=== PATIENT | female | born 1970 | race Caucasian/White ===

== ENCOUNTER 2017-02-13 09:46 | Day surgery (SDC) | payer OTHER ==
[2017-02-13] MEDS ORDERED: Lactated Ringer's 500 ML IV ONE (09:57)
[2017-02-13] MEDS ORDERED: Midazolam 2 MG/2 ML VIAL ONE (10:28)
[2017-02-13] MEDS ORDERED: Propofol 10 mg/ml Inj (20 ML) ONE (10:29)
[2017-02-13] MEDS ORDERED: ePHEDrine 50 mg/ml Inj ONE (11:04)
[2017-02-13 11:34] VITALS: TEMP 97; O2SAT 100
[2017-02-13 11:50] VITALS: BP 116/53; PULSE 60; RESP 15
== END 2017-02-13 12:31 | disposition home or self-care (01) ==
LOC: H.ENDO 09:46
PROVIDERS: ATTEND Internal Medicine Gastroenterology
DX: K62.5 Hemorrhage of anus and rectum (principal); K57.30 Diverticulosis of large intestine without perforation or abscess without bleeding; K64.8 Other hemorrhoids

== ENCOUNTER 2017-04-24 09:34 | Day surgery (SDC) | payer OTHER ==
[2017-04-24] MEDS ORDERED: Lactated Ringer's 500 ML IV ONE (09:56)
[2017-04-24] MEDS ORDERED: Propofol 10 mg/ml Inj (20 ML) ONE (10:49)
[2017-04-24 11:29] VITALS: TEMP 97.5
[2017-04-24 11:49] VITALS: BP 103/65; PULSE 59; RESP 16; O2SAT 98
== END 2017-04-24 12:00 | disposition home or self-care (01) ==
LOC: H.ENDO 09:34
PROVIDERS: ATTEND Internal Medicine Gastroenterology
DX: K29.50 Unspecified chronic gastritis without bleeding (principal); K44.9 Diaphragmatic hernia without obstruction or gangrene